=== PATIENT | female | born 1980 | race Caucasian/White ===

== ENCOUNTER → 2019-06-24 16:50 | Outpatient (CLI) | payer BC, SELFPAY ==
--- NOTE | ~2019-06-24 | XR_ITS ---
XR knee RT 2V 06/24/2019 17:14 Indication: Right knee pain. Procedure: 2 views right knee Comparison: No prior studies for comparison. Findings: No fracture, subluxation or dislocation. No significant joint effusion. No focal soft tissu e abnormality. No radiopaque foreign bodies. Impression: 1: No acute bone or joint abnormality. Reviewed, dictated and finalized at location A. 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
== END ==
DX: M25.561 Pain in right knee (principal)
CPT/HCPCS: 73560

== ENCOUNTER → 2021-10-18 13:41 | Outpatient (CLI) | payer BC, SELFPAY ==
--- NOTE | ~2021-10-18 | MM_ITS ---
EXAMINATION: MM screening ellen BI w [place] HISTORY: Screening TECHNIQUE: Craniocaudal and mediolateral oblique 3-D tomosynthesis images were obtained and synthetic 2-D images were generated. CAD analysis was submitted and interpreted. COMPARISON: No prior mammogram is available for comparison at this institution. BREAST PARENCHYMAL COMPOSITION: The breasts are extremely dense, which lowers the sensitivity of mamm ography FINDINGS: There are no suspicious masses, calcifications or architectural distortion in the right galen ast to suggest malignancy. There is focal asymmetry in the lower central aspect of the left breast, m iddle third. IMPRESSION: 1. Focal left breast asymmetry, lower central breast. 2. Additional mammographic views and possible breast ultrasound are recommended. BI-RADS Category 0: Incomplete: Needs additional imaging evaluation. Reviewed, dictated and finalized at location A. IMPRESSION: 1. Focal left breast asymmetry, lower central breast. 2. Additional mammographic views and possible breast ultrasound are recommended . BI-RADS Category 0: Incomplete: Needs additional imaging evaluation.
== END ==
PROVIDERS: PCP Obstetrics & Gynecology; Visit Provider Obstetrics & Gynecology
DX: Z12.31 Encounter for screening mammogram for malignant neoplasm of breast (principal); R92.8 Other abnormal and inconclusive findings on diagnostic imaging of breast
CPT/HCPCS: 77063; 77067

== ENCOUNTER → 2021-11-02 08:51 | Outpatient (CLI) | payer BC, SELFPAY ==
--- NOTE | ~2021-11-02 | MMUS_ITS ---
EXAMINATION: MM diagnostic ellen LT w [place], US breast LT complete HISTORY: Follow-up left breast asymmetry TECHNIQUE: Additional 3-D tomosynthesis images of the left breast were performed and synthetic 2-D im ages were generated. CAD analysis was submitted and interpreted. High resolution complete left breast ultrasound was performed. COMPARISON: 10/18/2021 BREAST PARENCHYMAL COMPOSITION: The breasts are extremely dense, which lowers the sensitivity of mamm ography FINDINGS: MAMMOGRAPHIC FINDINGS: There is a persistent focal asymmetry inferiorly in the left breast on mediolateral view, not recogni zed on CC image. No suspicious calcifications or architectural distortion. ULTRASOUND: Complete left breast ultrasound including all 4 quadrants in the subareolar location: Near the nipple there is an irregular shaped hypoechoic mass measuring 1.1 x 0.5 x 0.9 cm without significant excavating machine operator ior features or internal vascularity. At 1:00, 5 cm from the nipple there is a hypoechoic structure w ith internal cystic changes measuring up to 8 mm, most likely benign cluster of microcysts. At 9:00, 2 cm from the nipple, there is a 5 mm cyst. IMPRESSION: 1. Irregular hypoechoic left breast mass near the nipple measuring 11 x 5 x 9 mm. 2. Ultrasound-guided left breast biopsy recommended. BI-RADS category 4, suspicious findings. Reviewed, dictated and finalized at location A. IMPRESSION: 1. Irregular hypoechoic left breast mass near the nipple measuring 11 x 5 x 9 m m. 2. Ultrasound-guided left breast biopsy recommended. BI-RADS category 4, suspicious findings.
== END ==
PROVIDERS: PCP Obstetrics & Gynecology; Visit Provider Obstetrics & Gynecology
DX: N60.02 Solitary cyst of left breast (principal)
CPT/HCPCS: 76641; 77061; 77065; G0279